=== PATIENT | male | born 1970 | race Caucasian/White ===

== ENCOUNTER → 2017-12-17 | Outpatient (CLI) | payer BC ==
[~2017-12-17] MED LIST: AUGMENTIN 875875 MG PO; KEFLEX500 MG PO; LISINOPRIL20 MG PO; MUCINEX DM 60 M1 TER PO; NAPROSYN500 MG PO; NKHM; PREDNISONE10 MG PO; ROBITUSSIN DM 105 ML PO; SYNTHROID0.05 MG PO; ZOCOR10 MG PO; Zofran4 MG PO
== END | disposition home or self-care (01) ==
LOC: US 07:30
DX: K76.0 Fatty (change of) liver, not elsewhere classified (principal)

== ENCOUNTER → 2019-03-12 | Outpatient (CLI) | payer BC | END | disposition home or self-care (01) | LOC: MRI 03-04 15:00 | DX: M67.813 Other specified disorders of tendon, right shoulder (principal) ==

== ENCOUNTER → 2020-07-27 | Outpatient (CLI) | payer BC ==
[~2020-07-27] MED LIST changes: +PREDNISONE20 M1 PO; +PROVENTIL HFA6.7 GM INH; +ZITHROMAX250 MG PO
== END | disposition home or self-care (01) ==
LOC: COVID19 16:21
PROVIDERS: ATTEND Family Medicine
DX: U07.1 COVID-19 (principal)

== ENCOUNTER 2020-08-03 16:22 | Emergency (ER) | payer BC ==
[~2020-08-03] VITALS: Ht 177.8 cm; Wt 86.2 kg
[~2020-08-03 16:22] MED LIST changes: -PREDNISONE20 M1 PO; -PROVENTIL HFA6.7 GM INH; -ZITHROMAX250 MG PO
[2020-08-03] MEDS ORDERED: PREDNISONE20 M1 PO (16:41)
[2020-08-03] MEDS ORDERED: PROVENTIL HFA6.7 GM INH (16:41)
[2020-08-03] MEDS ORDERED: ZITHROMAX250 MG PO (17:42)
== END 2020-08-03 17:44 | disposition home or self-care (01) ==
LOC: ED 16:22
DX: U07.1 COVID-19 (principal); Z79.899 Other long term (current) drug therapy

== ENCOUNTER 2020-12-05 18:10 | Emergency (ER) | payer BC ==
[~2020-12-05] VITALS: Ht 175.2 cm; Wt 97.5 kg
[~2020-12-05 18:10] MED LIST changes: +PREDNISONE20 M1 PO; +PROVENTIL HFA6.7 GM INH; +ZITHROMAX250 MG PO
[2020-12-05 19:06] LABS: HEMATOCRIT 36.8 % (42.0-52.0); MEAN CELL VOLUME 66.5 fl (80.0-94.0); MEAN CORPUSCULAR HGB CONC 31.5 g/dl (33.0-37.0); MEAN PLATELET VOLUME 9.8 fl (9.6-12.3); PLATELET COUNT AUTOMATED 247 10*3/uL (130-400); RED BLOOD COUNT 5.53 10*6/uL (4.50-5.90); WHITE BLOOD COUNT 10.8 10*3/uL (4.8-10.8)
[2020-12-05 19:21] LABS: ALBUMIN 3.8 gm/dl (3.1-4.5); ALKALINE PHOSPHATASE 63 U/L (45-117); BUN 16 mg/dl (7-24); CHLORIDE 104 mmol/L (98-107); CREATININE 0.94 mg/dL (0.70-1.30); POTASSIUM 3.5 mmol/L (3.5-5.1); SGOT/AST 10 IU/L (3-35); SGPT/ALT 33 U/L (12-78); SODIUM 137 mmol/L (136-145)
[2020-12-05 19:44] LABS: BILIRUBIN Negative (Negative); BLOOD Trace-Lysed (Negative); CLARITY Clear (Clear); COLOR Dark Yellow (Yellow); GLUCOSE Negative (Negative); KETONE Trace (Negative); LEUKO ESTERASE Negative (Negative); NITRITE Negative (Negative); PH 6.5 (4.5-8.0); SPECIFIC GRAVITY >= 1.030 (1.001-1.030)
[2020-12-05 19:45] LABS: BASOPHILS 1 % (0-1); PLATELET SUFFICIENCY NORMAL (NORMAL); TOTAL CELLS COUNTED 100 #CELLS
[2020-12-05 19:46] LABS: BURR CELLS FEW
[2020-12-05 19:52] LABS: BACTERIA TRACE; EPITHELIAL CELLS 0-2; MUCOUS TRACE; RBC 0-2 rbc/hpf (0-2)
[2020-12-05] MEDS ORDERED: ZITHROMAX250 MG PO ×3 (21:33→21:46)
== END 2020-12-05 20:44 | disposition home or self-care (01) ==
LOC: ED 18:10
PROVIDERS: Physician Assistant
DX: J18.9 Pneumonia, unspecified organism (principal); I10 Essential (primary) hypertension; Z20.822 Contact with and (suspected) exposure to COVID-19; Z79.899 Other long term (current) drug therapy; Z98.890 Other specified postprocedural states

== ENCOUNTER 2021-02-13 15:48 | Inpatient (IN) | payer BC ==
[~2021-02-13] VITALS: Ht 175.2 cm; Wt 99.5 kg
[~2021-02-13 15:48] MED LIST changes: +SYNTHROID,LEV125 MCG PO; -SYNTHROID0.05 MG PO
[2021-02-13 16:22] LABS: HEMATOCRIT 36.6 % (42.0-52.0); MEAN CELL VOLUME 64.8 fl (80.0-94.0); MEAN CORPUSCULAR HGB 20.5 pg (27.0-31.0); MEAN CORPUSCULAR HGB CONC 31.7 g/dl (33.0-37.0); MEAN PLATELET VOLUME 9.7 fl (9.6-12.3); PLATELET COUNT AUTOMATED 304 10*3/uL (130-400); RED BLOOD COUNT 5.65 10*6/uL (4.50-5.90); RED CELL DISTRI WIDTH 17.6 % (0-14.5)
[2021-02-13 16:45] LABS: PLATELET SUFFICIENCY NORMAL (NORMAL); TOTAL CELLS COUNTED 100 #CELLS
[2021-02-13 16:56] LABS: ALBUMIN 3.6 gm/dl (3.1-4.5); ALKALINE PHOSPHATASE 67 U/L (45-117); BUN 18 mg/dl (7-24); CHLORIDE 102 mmol/L (98-107); CREATININE 0.99 mg/dL (0.70-1.30); LIPASE 77 U/L (73-393); POTASSIUM 3.7 mmol/L (3.5-5.1); SGOT/AST 18 IU/L (3-35); SGPT/ALT 40 U/L (12-78); SODIUM 137 mmol/L (136-145); TOTAL PROTEIN 7.8 gm/dL (6.4-8.2)
[2021-02-13 18:32] LABS: BILIRUBIN 1+ (Negative); BLOOD Negative (Negative); CLARITY Clear (Clear); COLOR Dark Yellow (Yellow); GLUCOSE Negative (Negative); KETONE Trace (Negative); LEUKO ESTERASE Trace (Negative); NITRITE Negative (Negative); PH 5.5 (4.5-8.0); SPECIFIC GRAVITY 1.025 (1.001-1.030)
[2021-02-13 18:54] LABS: HYALINE CAST 0-2; MUCOUS 4+; RBC 0-2 rbc/hpf (0-2); WBC 0-2 wbc/hpf (0-5)
[2021-02-13 20:40] VITALS: BP 108/56
[2021-02-14] VITALS (7 sets, daily range): BP systolic 94–127; BP diastolic 44–62
[2021-02-14] MEDS ORDERED: ZESTORETIC 20-1 EACH PO (01:59)
[2021-02-14] MEDS ORDERED: ASPIRIN ADULT L81 M2 PO (02:00)
[2021-02-14] MEDS ORDERED: VOLTAREN50 M1 PO (02:00)
[2021-02-14] MEDS ORDERED: MULTI-VITAMIN1 EACH PO (02:01)
[2021-02-14 06:25] LABS: BASO % 0.4 % (0.0-1.0); EOS # 0.5 10*3/uL (0.0-0.4); EOS % 4.6 % (1.0-4.0); HEMATOCRIT 33.7 % (42.0-52.0); LYMPH # 2.1 10*3/uL (1.3-4.4); LYMPH % 19.5 % (27.0-41.0); MEAN CELL VOLUME 66.9 fl (80.0-94.0); MEAN CORPUSCULAR HGB 20.8 pg (27.0-31.0); MEAN CORPUSCULAR HGB CONC 31.2 g/dl (33.0-37.0); MEAN PLATELET VOLUME 9.8 fl (9.6-12.3); MONO # 1.3 10*3/uL (0.1-1.0); MONO % 12.5 % (3.0-9.0); NEUT # 6.8 10*3/uL (2.3-7.9); NEUT % 62.7 % (47.0-73.0); PLATELET COUNT AUTOMATED 243 10*3/uL (130-400); RED BLOOD COUNT 5.04 10*6/uL (4.50-5.90); RED CELL DISTRI WIDTH 17.2 % (0-14.5); WHITE BLOOD COUNT 10.7 10*3/uL (4.8-10.8)
[2021-02-14 06:32] LABS: INTERNATIONAL NORM RATIO 1.2 (2.0-3.5)
[2021-02-14 06:56] LABS: ALBUMIN 3.1 gm/dl (3.1-4.5); BUN 21 mg/dl (7-24); CHLORIDE 107 mmol/L (98-107); CHOLESTEROL 119 mg/dL (<200); CREATININE 1.18 mg/dL (0.70-1.30); SGPT/ALT 29 U/L (12-78); SODIUM 140 mmol/L (136-145); TOTAL PROTEIN 6.7 gm/dL (6.4-8.2); TRIGLYCERIDES 66 mg/dl (<150)
[2021-02-14 06:58] LABS: ALKALINE PHOSPHATASE 66 U/L (45-117); LDL CHOLESTEROL 68 mg/dL (9-159); SGOT/AST 11 IU/L (3-35)
[2021-02-14] MEDS ORDERED: ULTRAM50 MG PO (09:54)
== END 2021-02-14 10:38 | disposition home or self-care (01) | DRG 342 ==
LOC: ED 15:48 → 5E 17:15 → EDHOLD 17:15 → 5E 20:29
PROVIDERS: Emergency Medicine; Student in an Organized Health Care Education/Training Program; ADMIT Internal Medicine; ATTEND Internal Medicine
PROC: 0DTJ4ZZ Resection of Appendix, Percutaneous Endoscopic Approach (ICD-10-PCS; principal; 2021-02-14)
DX: K35.30 Acute appendicitis with localized peritonitis, without perforation or gangrene (principal); E87.2 Acidosis; D50.9 Iron deficiency anemia, unspecified; D56.3 Thalassemia minor; E03.9 Hypothyroidism, unspecified; E83.41 Hypermagnesemia; E66.9 Obesity, unspecified; I10 Essential (primary) hypertension; Z86.16 Personal history of COVID-19; Z87.01 Personal history of pneumonia (recurrent); Z83.3 Family history of diabetes mellitus; Z80.8 Family history of malignant neoplasm of other organs or systems; Z79.899 Other long term (current) drug therapy; Z79.52 Long term (current) use of systemic steroids; Z68.32 Body mass index [BMI] 32.0-32.9, adult

== ENCOUNTER 2025-07-10 17:30 | Emergency (ER) | payer BC ==
[~2025-07-10] VITALS: Ht 175.2 cm; Wt 93.0 kg
[~2025-07-10 17:30] MED LIST changes: +ASPIRIN ADULT L81 M2 PO; +MULTI-VITAMIN1 EACH PO; +ULTRAM50 MG PO; +VOLTAREN50 M1 PO; +ZESTORETIC 20-1 EACH PO
[2025-07-10] MEDS ORDERED: SODIUM CHLORIDE 0.9% 1,000 ML IV ONE (18:00)
[2025-07-10] MEDS ORDERED: Ondansetron Hydrochloride 4 MG/2 ML VIAL IV ONE (18:05)
[2025-07-10 18:14] LABS: BASO # 0.0 10*3/uL (0.0-0.1); BASO % 0.6 % (0.0-1.0); EOS # 0.2 10*3/uL (0.0-0.4); EOS % 3.5 % (1.0-4.0); MEAN CELL VOLUME 67.1 fl (80.0-94.0); MEAN CORPUSCULAR HGB 21.2 pg (27.0-31.0); MEAN PLATELET VOLUME 9.6 fl (9.6-12.3); MONO # 0.5 10*3/uL (0.1-1.0); MONO % 8.1 % (3.0-9.0); NEUT # 3.9 10*3/uL (2.3-7.9); NEUT % 57.9 % (47.0-73.0); NUCLEATED RED BLOOD CELL 0.0 % (0.0-0.0); NUCLEATED RED BLOOD CELL 0.0 10*3/uL (0.0-0.0); PLATELET COUNT AUTOMATED 219 10*3/uL (130-400); RED CELL DISTRI WIDTH 17.9 % (0-14.5)
[2025-07-10 18:27] LABS: BILIRUBIN Negative (Negative); BLOOD 3+ (Negative); CLARITY Clear (Clear); COLOR Yellow (Yellow); KETONE Negative (Negative); LEUKO ESTERASE Negative (Negative); NITRITE Negative (Negative); PH 5.5 (4.5-8.0); SPECIFIC GRAVITY 1.020 (1.001-1.030); UROBILINOGEN 1.0 E.U./dl (0.0-1.0)
[2025-07-10 18:39] LABS: BUN 18 mg/dl (9-23)
[2025-07-10 18:59] LABS: BACTERIA 1+; RBC TNTC rbc/hpf (0-2)
[2025-07-10] MEDS ORDERED: Promethazine Hydrochloride 25 MG/ML VIAL IM ONE (21:45)
[2025-07-10] MEDS ORDERED: FLOMAX0.4 MG PO (21:52)
[2025-07-10] MEDS ORDERED: HYDROCODONE-AC1 EAC1 PO (21:52)
== END 2025-07-10 22:21 | disposition home or self-care (01) ==
LOC: ED 17:30
DX: N20.0 Calculus of kidney (principal); K57.30 Diverticulosis of large intestine without perforation or abscess without bleeding; N28.1 Cyst of kidney, acquired; I10 Essential (primary) hypertension; E03.9 Hypothyroidism, unspecified; E66.9 Obesity, unspecified; Z68.34 Body mass index [BMI] 34.0-34.9, adult; Z79.899 Other long term (current) drug therapy; Z90.89 Acquired absence of other organs; Z98.890 Other specified postprocedural states

== ENCOUNTER → 2025-07-16 | Emergency (ER) | payer BC ==
[~2025-07-16] VITALS: Ht 175.2 cm; Wt 99.3 kg
[~2025-07-16] MED LIST changes: +ATORVASTATIN CA10 M1 PO; +Acetaminophen/Oxycodone 5 MG/325 MG TABLET PO ONE; +FLOMAX0.4 MG PO; +HYDROCODONE-AC1 EAC1 PO; +Motrin,Rufen800 MG PO; +Ondansetron Hydrochloride 4 MG/2 ML VIAL IV ONE; +Ondansetron4 MG PO; +PERCOCET 5-3251 EACH PO; +POTASSIUM CITRA5 MEQ PO; +SODIUM CHLORIDE 0.9% 1,000 ML IV ONE
[2025-07-16 05:58] LABS: BASO # 0.1 10*3/uL (0.0-0.1); BASO % 0.6 % (0.0-1.0); EOS # 0.2 10*3/uL (0.0-0.4); EOS % 1.4 % (1.0-4.0); MEAN CELL VOLUME 66.2 fl (80.0-94.0); MEAN PLATELET VOLUME 9.6 fl (9.6-12.3); MONO # 0.9 10*3/uL (0.1-1.0); MONO % 8.8 % (3.0-9.0); NEUT # 7.6 10*3/uL (2.3-7.9); NEUT % 73.3 % (47.0-73.0); NUCLEATED RED BLOOD CELL 0.0 % (0.0-0.0); NUCLEATED RED BLOOD CELL 0.0 10*3/uL (0.0-0.0); PLATELET COUNT AUTOMATED 253 10*3/uL (130-400); RED CELL DISTRI WIDTH 18.6 % (0-14.5)
[2025-07-16 06:04] LABS: MEAN CORPUSCULAR HGB 20.7 pg (27.0-31.0)
[2025-07-16 06:05] LABS: BUN 23 mg/dl (9-23); SGPT/ALT 35 U/L (5-49)
== END ==
LOC: ED 05:08
PROVIDERS: Emergency Medicine
DX: N20.1 Calculus of ureter (principal); Z88.5 Allergy status to narcotic agent; Z98.890 Other specified postprocedural states; Z90.89 Acquired absence of other organs

== ENCOUNTER → 2025-07-26 | Outpatient (CLI) | payer BC ==
[~2025-07-26] MED LIST changes: -Acetaminophen/Oxycodone 5 MG/325 MG TABLET PO ONE; -Ondansetron Hydrochloride 4 MG/2 ML VIAL IV ONE; -SODIUM CHLORIDE 0.9% 1,000 ML IV ONE
[2025-07-26 16:14] LABS: BASO # 0.1 10*3/uL (0.0-0.1); BASO % 0.7 % (0.0-1.0); EOS # 0.3 10*3/uL (0.0-0.4); EOS % 3.8 % (1.0-4.0); MEAN CELL VOLUME 66.6 fl (80.0-94.0); MEAN CORPUSCULAR HGB 20.3 pg (27.0-31.0); MEAN PLATELET VOLUME 8.8 fl (9.6-12.3); MONO # 0.7 10*3/uL (0.1-1.0); MONO % 9.6 % (3.0-9.0); NEUT # 4.1 10*3/uL (2.3-7.9); NEUT % 55.9 % (47.0-73.0); NUCLEATED RED BLOOD CELL 0.0 % (0.0-0.0); NUCLEATED RED BLOOD CELL 0.0 10*3/uL (0.0-0.0); PLATELET COUNT AUTOMATED 306 10*3/uL (130-400); RED CELL DISTRI WIDTH 18.7 % (0-14.5)
[2025-07-26 16:49] LABS: BUN 14 mg/dl (9-23); SGPT/ALT 45 U/L (5-49)
== END | disposition home or self-care (01) ==
LOC: LAB 15:49 → US 16:00
PROVIDERS: ATTEND Urology
DX: N28.1 Cyst of kidney, acquired (principal); N20.0 Calculus of kidney; N32.89 Other specified disorders of bladder